=== PATIENT | male | born 1960 | race Caucasian/White ===

== ENCOUNTER 2023-12-23 14:36 | Emergency (ER) | payer MEDICARE ==
[~2023-12-23] VITALS: Ht 177.8 cm; Wt 81.6 kg
[2023-12-23 15:05] VITALS: PULSE 88; RESP 18; TEMP 98.6; O2SAT 99
[2023-12-23] MEDS ORDERED: LIDOCAINE HCL 2% 2 ML AMP INJ ONE (15:30)
[2023-12-23] MEDS: LIDOCAINE HCL 2% LOCAL 20 ML VIAL INJ ONE (16:30)
[2023-12-23] MEDS ORDERED: CLINDAMYCIN HC150 MG PO (17:02)
== END 2023-12-23 17:59 | disposition home or self-care (01) ==
LOC: ER 14:47
DX: M79.644 Pain in right finger(s) (principal); L03.011 Cellulitis of right finger; I10 Essential (primary) hypertension; E11.9 Type 2 diabetes mellitus without complications; E78.5 Hyperlipidemia, unspecified; M19.09 Primary osteoarthritis, other specified site
CPT/HCPCS: 10060; 73140; 99283; J2001

== ENCOUNTER 2025-02-26 17:23 | Emergency (ER) | payer MEDICARE ==
[~2025-02-26] VITALS: Ht 177.8 cm; Wt 77.6 kg
[~2025-02-26 17:23] MED LIST: CLINDAMYCIN HC150 MG PO
[2025-02-26 18:05] VITALS: TEMP 98.7
[2025-02-26 18:23] LABS: BASOPHILS % 0.6 % (0.0-1.0); EOSINOPHILS % 1.4 % (0.0-6.0); LYMPHOCYTES % 29.0 % (18.0-39.1); MONOCYTES % 9.5 % (4.4-11.3); NEUTROPHILS % 59.1 % (38.7-80.0); RED CELL DISTRIBUTION WIDTH 13.2 % (11.7-14.4)
[2025-02-26] MEDS: SODIUM CHLORIDE 0.9% 1000ML 1,000 ML IV ONE ×2 (18:25)
[2025-02-26] MEDS: ONDANSETRON HCL INJ 2MG/ML 2ML 2 MG/ML VIAL IV STA (18:26)
[2025-02-26 18:32] LABS: LEUKOCYTE ESTERASE ,URINE NEGATIVE (NEGATIVE); PROTEIN,URINE DIPSTICK NEGATIVE (NEGATIVE); URINE UROBILINOGEN 0.2 mg/dL (0.2 - 1)
[2025-02-26 18:39] LABS: EST GLOMERULAR FILTRATION RATE 37.0 ML/MIN (>=60)
[2025-02-26 18:49] LABS: WBC,URINE (MAN) 0-5 /HPF (0-5)
[2025-02-26] MEDS ORDERED: IOPAMIDOL 370 MG/ML 100 ML INFUS..BTL INJ ONE (19:02)
[2025-02-27 04:31] VITALS: PULSE 78; RESP 18; O2SAT 100
== END 2025-02-27 05:35 | disposition other institution (70) ==
LOC: ER 18:12
DX: R51.9 Headache, unspecified (principal); I67.1 Cerebral aneurysm, nonruptured; R10.13 Epigastric pain; K57.90 Diverticulosis of intestine, part unspecified, without perforation or abscess without bleeding; N40.0 Benign prostatic hyperplasia without lower urinary tract symptoms; R94.31 Abnormal electrocardiogram [ECG] [EKG]
CPT/HCPCS: 36415; 70450; 74176; 80053; 81001; 83690; 84484; 85025; 93005; 99284; J2405; J2470; J7030; Q9967